=== PATIENT | female | born 1985 | race Caucasian/White ===

== ENCOUNTER 2016-12-25 14:01 | Observation (INO) | payer OTHER ==
[2016-12-25] MEDS ORDERED: ONDANSETRON 4 MG/2 ML VIAL ONE ×2 (14:21→15:17)
[2016-12-25] MEDS ORDERED: NS 1,000 ML IV ONE ×2 (14:36→15:12)
[2016-12-25 14:47] LABS: % IMMATURE GRANULYOCYTES 0.2 % (0.0-1.1); ABSOLUTE IMMATURE GRANULOCYTES 0.03 10^3/uL (0.00-0.10); ADD DIFF? NO; ADD MORPH? NO; ADD SCAN? NO; ATYPICAL LYMPHOCYTE FLAG 10 (0-99); FRAGMENT RBC FLAG 0 (0-99); HEMATOCRIT 36.9 % (38.0-47.0); HEMOGLOBIN 12.6 g/dL (12.6-16.3); LEFT SHIFT FLG 0 (0-99); LIPEMIA HEMOLYSIS FLAG 90 (0-99); MEAN CELL HEMOGLOBIN 32.3 pg (27.9-34.1); MEAN CELL HEMOGLOBIN CONCENTR. 34.1 g/dL (32.4-36.7); MEAN CELL VOLUME 94.6 fL (81.5-99.8); MEAN PLATELET VOLUME 10.2 fL (8.7-11.7); PLATELET CLUMPS FLAG 20 (0-99); PLATELET COUNT 302 10^3/uL (150-400); RED CELL DISTRIBUTION WIDTH 12.6 % (11.5-15.2)
[2016-12-25] MEDS ORDERED: PANTOPRAZOLE SODIUM 40 MG VIAL IVP ONE (14:50)
--- NOTE | 2016-12-25 14:50 | EDPHY ---
H & P Stated Complaint: dry mouth, abd pain Source: Patient, Family Exam Limitations: No limitations - Personal History LMP (Females 10-55): 1-7 Days Ago Current Tetanus Diphtheria and Acellular Pertussis (TDAP): Unsure - Medical/Surgical History Hx Asthma: No Hx Chronic Respiratory Disease: No Hx Diabetes: No Hx Cardiac Disease: No Hx Renal Disease: No Hx Cirrhosis: No Hx Alcoholism: No Hx HIV/AIDS: No Hx Splenectomy or Spleen Trauma: No - Social History Smoking Status: Never smoked HPI/ROS: CHIEF COMPLAINT: Epigastric pain, vomiting HISTORY OF PRESENT ILLNESS: Patient complains 1 day history of epigastric abdominal. This started this morning 9:00 a.m.. She had not recently eaten. It is a constant pain. It was mild at 1st and steadily worsened over the course of 4 hours. At worst it was a 9/10. Currently a 3/10. No radiating pain. Nausea and 1 episode of vomiting today. She has had several episodes of this over the past 4 months. None of them occur after eating. They do occur randomly. The described as a pressure-type pain. Nausea in the past but no vomiting until today. No trauma or injury. No urinary complaints. No changes in her bowel movements. Patient is visiting from [place]. They were hiking this morning when this originally started. No other associated complaints or modifying factors. Addendum to HPI I originally documented the patient had informed me she had no previous surgeries. This is incorrect. She does have 1 diagnostic laparoscopy performed several years ago due to uterine fibroids. PREVIOUS ABDOMINAL SURGERIES/DIAGNOSES: None REVIEW OF SYSTEMS: Ten systems reviewed and are negative unless otherwise noted in the HPI EXAMINATION: General Appearance: Alert, no distress Head: normocephalic, atraumatic Eyes: Pupils equal and round, no conjunctival pallor or injection ENT, Mouth: Mucous membranes moist Neck: Normal inspection, supple, non-tender Respiratory: Lungs are clear to auscultation. Uvula midline. Cardiovascular: Regular rate and rhythm. No murmur. Gastrointestinal: Abdomen is soft. Moderate tenderness in the epigastrium. No distention. No tympany. No rigidity. No CVA tenderness. Negative Webb sign. Non-acute abdomen. Neurological: A&O, nonfocal, normal gait Skin: Warm and dry, no rash. No petechiae or purpura Extremities: Nontender, no pedal edema Psychiatric: Mood and affect normal DIFFERENTIAL DIAGNOSES: Including but not limited to gastritis, pancreatitis, cholecystitis, cholelithiasis, enteritis, colitis, duodenitis, numbness MDM: 2:45 p.m. Epigastric abdominal pain with vomiting. Patient was moderately tender in the epigastrium, thus I have ordered a CT scan of the abdomen pelvis. Vital signs were well within normal limits. She is in no acute distress with a nonacute abdominal examination. Suspect this is gastritis with mild dehydration. 4:00 p.m. Notified by radiologist Dr. Jennings. CT scan of the abdomen pelvis reveals acute, early partial small bowel obstruction. There is a transition point distally. Question the possibility of Crohn's disease presents. No other finding. 4:15 p.m. I have discussed the case with hospitalist Dr. Ptael, she will admit the patient to her service. I will consult General surgery. I have re-evaluated patient and made her aware of these findings. She was visually upset by this but reasonably so. She is resting comfortably in no acute distress 4:20 p.m. I have discussed the case with general surgeon Dr. Reno. She will come evaluate the patient in the emergency department. No further recommendations. Patient has been admitted in stable condition for further care. No active vomiting and minimal pain, thus I did not order an NG tube. Dr. Reno is comfortable with this so far ED Precautions: Worsening pain. Fever. Bloody stools. Bloody emesis. Constipation or diarrhea. SUPERVISION: Patient was evaluated in conjunction with the supervising physician. Please see their note for details. (James Galindo) Constitutional: Initial Vital Signs Temperature (C) 36.9 C 12/25/16 14:16 Heart Rate 96 12/25/16 14:16 Respiratory Rate 16 12/25/16 14:16 Blood Pressure 123/81 H 12/25/16 14:16 O2 Sat (%) 99 12/25/16 14:16 O2 Delivery Mode Room Air Medical Decision Making - Diagnostics Imaging Results: Imaging Impressions Abdomen CT 12/25/16 14:45 Impression: 1. Mild small bowel distention with abrupt transition in the right pelvis, suggesting small bowel obstruction, with moderate mesenteric edema and a small amount of free fluid. 2. Areas of apparent wall thickening in the ileum, which could be related to underdistention, enteritis or small bowel inflammation (Crohn's could have this appearance). 3. Multiple circumscribed hypodensities in the liver, which could represent a cyst but are too small to characterize. 4. Additional findings as above. Findings discussed with James Galindo PA-C, 12/25/2016 at 1558 hours. ED Course/Re-evaluation: I did not see this patient while she was in the emergency department. However her care was discussed with the PA while the patient was in the department. I agree with treatment plan and management (Brant Briones) - Data Points Laboratory Results: Laboratory Results 12/25/16 14:30 12/25/16 14:30 12/25/16 12/25/16 12/25/16 15:05 14:30 14:30 WBC RBC Hgb Hct MCV MCH MCHC RDW Plt Count MPV Neut % (Auto) Lymph % (Auto) Reynolds % (Auto) Eos % (Auto) Baso % (Auto) Nucleat RBC Rel Count Absolute Neuts (auto) Absolute Lymphs (auto) Absolute Monos (auto) Absolute Eos (auto) Absolute Basos (auto) Absolute Nucleated RBC Immature Gran % Immature Gran # Sodium 138 mEq/L mEq/L (134-144) Potassium 3.9 mEq/L mEq/L (3.5-5.2) Chloride 100 mEq/L mEq/L (97-110) Carbon Dioxide 21 mEq/l L mEq/l (22-31) Anion Gap 17 mEq/L H mEq/L (8-16) BUN 5 mg/dL L mg/dL (7-23) Creatinine 0.6 mg/dL mg/dL (0.6-1.0) Estimated GFR > 60 Glucose 97 mg/dL mg/dL (70-100) Calcium 10.1 mg/dL mg/dL (8.5-10.4) Total Bilirubin 1.0 mg/dL mg/dL (0.1-1.4) Conjugated Bilirubin 0.4 mg/dL mg/dL (0.0-0.5) Unconjugated Bilirubin 0.6 mg/dL mg/dL (0.0-1.1) AST 35 IU/L IU/L (14-46) ALT 20 IU/L IU/L (9-52) Alkaline Phosphatase 41 IU/L IU/L (38-126) Total Protein 8.7 g/dL H g/dL (6.3-8.2) Albumin 5.3 g/dL H g/dL (3.5-5.0) Lipase 90.0 IU/L IU/L (23-300) Beta HCG, Qual NEGATIVE Specimen Hemolysis 115 Urine Color YELLOW Urine Appearance CLEAR Urine pH 8.0 H (5.0-7.5) Ur Specific [place] 1.014 (1.002-1.030) Urine Protein NEGATIVE (NEGATIVE) Urine Ketones 2+ H (NEGATIVE) Urine Blood NEGATIVE (NEGATIVE) Urine Nitrate NEGATIVE (NEGATIVE) Urine Bilirubin NEGATIVE (NEGATIVE) Urine Urobilinogen NEGATIVE EU EU (0.2-1.0) Ur Leukocyte Esterase NEGATIVE (NEGATIVE) Urine RBC 5-10 /hpf H /hpf (0-3) Urine WBC 1-3 /hpf /hpf (0-3) Ur Epithelial Cells TRACE /lpf /lpf (NONE-1+) Urine Mucus TRACE /lpf /lpf (NONE-1+) Urine Glucose NEGATIVE (NEGATIVE) 12/25/16 14:30 WBC 12.83 10^3/uL H 10^3/uL (3.80-9.50) RBC 3.90 10^6/uL L 10^6/uL (4.18-5.33) Hgb 12.6 g/dL g/dL (12.6-16.3) Hct 36.9 % L % (38.0-47.0) MCV 94.6 fL fL (81.5-99.8) MCH 32.3 pg pg (27.9-34.1) MCHC 34.1 g/dL g/dL (32.4-36.7) RDW 12.6 % % (11.5-15.2) Plt Count 302 10^3/uL 10^3/uL (150-400) MPV 10.2 fL fL (8.7-11.7) Neut % (Auto) 86.4 % H % (39.3-74.2) Lymph % (Auto) 8.6 % L % (15.0-45.0) Reynolds % (Auto) 3.5 % L % (4.5-13.0) Eos % (Auto) 0.9 % % (0.6-7.6) Baso % (Auto) 0.4 % % (0.3-1.7) Nucleat RBC Rel Count 0.0 % % (0.0-0.2) Absolute Neuts (auto) 11.08 10^3/uL H 10^3/uL (1.70-6.50) Absolute Lymphs (auto) 1.10 10^3/uL 10^3/uL (1.00-3.00) Absolute Monos (auto) 0.45 10^3/uL 10^3/uL (0.30-0.80) Absolute Eos (auto) 0.12 10^3/uL 10^3/uL (0.03-0.40) Absolute Basos (auto) 0.05 10^3/uL 10^3/uL (0.02-0.10) Absolute Nucleated RBC 0.00 10^3/uL 10^3/uL (0-0.01) Immature Gran % 0.2 % % (0.0-1.1) Immature Gran # 0.03 10^3/uL 10^3/uL (0.00-0.10) Sodium Potassium Chloride Carbon Dioxide Anion Gap BUN Creatinine Estimated GFR Glucose Calcium Total Bilirubin Conjugated Bilirubin Unconjugated Bilirubin AST ALT Alkaline Phosphatase Total Protein Albumin Lipase Beta HCG, Qual Specimen Hemolysis Urine Color Urine Appearance Urine pH Ur Specific Geismar Urine Protein Urine Ketones Urine Blood Urine Nitrate Urine Bilirubin Urine Urobilinogen Ur Leukocyte Esterase Urine RBC Urine WBC Ur Epithelial Cells Urine Mucus Urine Glucose Medications Given: Discontinued Medications Sodium Chloride (Ns) 1,000 mls @ 0 mls/hr IV ONCE ONE; Wide Open PRN Reason: Protocol Stop: 12/25/16 14:37 Last Admin: 12/25/16 14:41 Dose: 1,000 mls Sodium Chloride (Ns) 1,000 mls @ 0 mls/hr IV ONCE ONE; Wide Open PRN Reason: Protocol Stop: 12/25/16 15:13 Last Admin: 12/25/16 14:45 Dose: 1,000 mls Ondansetron HCl (Zofran) 4 mg IVP EDNOW ONE Stop: 12/25/16 15:19 Last Admin: 12/25/16 15:21 Dose: 2 mg Pantoprazole Sodium (Protonix) 40 mg IVP EDNOW ONE Stop: 12/25/16 14:51 Last Admin: 12/25/16 14:52 Dose: Not Given
[2016-12-25 15:01] LABS: ALANINE AMINOTRANSFERASE 20 IU/L (9-52); ALBUMIN 5.3 g/dL (3.5-5.0); ALKALINE PHOSPHATASE 41 IU/L (38-126); ANION GAP 17 mEq/L (8-16); ASPARTATE AMINOTRANSFERASE 35 IU/L (14-46); BILIRUBIN-CONJUGATED 0.4 mg/dL (0.0-0.5); BILIRUBIN-UNCONJUGATED 0.6 mg/dL (0.0-1.1); CALCIUM 10.1 mg/dL (8.5-10.4); CARBON DIOXIDE 21 mEq/l (22-31); CHLORIDE 100 mEq/L (97-110); CREATININE 0.6 mg/dL (0.6-1.0); GLOMERULAR FILTRATION RATE > 60; GLUCOSE 97 mg/dL (70-100); POTASSIUM 3.9 mEq/L (3.5-5.2); SODIUM 138 mEq/L (134-144); SPECIMEN HEMOLYSIS 115; TOTAL PROTEIN 8.7 g/dL (6.3-8.2)
[2016-12-25] MEDS ORDERED: IOPAMIDOL (ISOVUE-300) 100 ML BTL ONE (15:09)
[2016-12-25] MEDS ORDERED: ONDANSETRON 4 MG/2 ML VIAL IVP ONE (15:18)
[2016-12-25 15:24] LABS: COLOR YELLOW; LEUKOCYTE ESTERASE,URINE NEGATIVE (NEGATIVE); NITRITE,URINE NEGATIVE (NEGATIVE)
[2016-12-25 15:26] LABS: MUCUS TRACE /lpf (NONE-1+)
--- NOTE | 2016-12-25 17:54 | GCON ---
[f rep st] CONSULTATION REFERRING PHYSICIAN: Brant Briones MD CHIEF COMPLAINT: Small-bowel obstruction. REQUESTING PHYSICIANS: Brant Briones MD, and James Galindo PA-C. HISTORY OF PRESENT ILLNESS: The patient is a 31-year-old woman traveling from [place], who, in retrospect over the several months, has had episodes of pressure in her epigastrium. She had greasy food last night. Around 11 o' clock today, she developed severe sharp pain. It had worsened throughout the day. She had emesis in the ER, which did alleviate some of the pain. When she leans back, she also has a relief of the pain. She feels like she needs to have a bowel movement, but when she sat on the toilet, nothing happened. The pain does not radiate. When she leans forward, it is worse. PAST MEDICAL HISTORY: None. PAST SURGICAL HISTORY: Laparoscopy, and removal of a fibroid from her uterus. SOCIAL HISTORY: She lives in [place]. She denies tobacco use. She works as a nanny. REVIEW OF SYSTEMS: Ten-point review of systems negative, except per HPI. FAMILY HISTORY: No history of inflammatory bowel disease. PHYSICAL EXAM: VITAL SIGNS: 36.6, 78, 121/64, 18, 99% room air. GENERAL: Pleasant, well-nourished, well-groomed woman sitting up on a gurney. PSYCHIATRIC: Tearful throughout interview. HEENT: Normocephalic. No gross hearing deficits. Mucous membranes moist. Pupils equal and round. No scleral icterus. LUNGS: Clear to auscultation bilaterally. No increased work of breathing. CARDIAC: Regular rate. No peripheral edema. ABDOMEN: Bowel sounds are hypoactive. She is soft. She is not distended. She is not tender. EXTREMITIES: Moves all extremities well. MUSCULOSKELETAL: Normal nails. NEUROLOGIC: Grossly intact. PSYCHIATRIC: Mood and affect normal. LABORATORY DATA: I personally reviewed the results of her CT scan. I do see dilated small bowel with air-fluid levels. IMPRESSION AND PLAN: The patient is a 31-year-old woman who presents with a small-bowel obstruction. I reported that I would be very doubtful that she would be able to make it back to [place] on Tuesday. We discussed NG tube for decompression, and, at this time, she would like to decline. If she has increased distention, she will ask for that; certainly, if she has emesis. We discussed that this could be adhesive disease or this could be just related to enteritis. We discussed that if she does not improve, she may need adhesiolysis I will continue to follow. /[id number]/MODL MTDD
[2016-12-25] MEDS ORDERED: ACETAMINOPHEN 325 MG TAB PO PRN (18:00)
[2016-12-25] MEDS ORDERED: NS 1,000 ML IV SCH (18:00)
[2016-12-25] MEDS ORDERED: PROMETHAZINE HCL 25 MG/ML INJ IVP PRN (18:00)
[2016-12-25] MEDS ORDERED: LORazepam 2 MG/ML INJ IVP PRN (18:00)
[2016-12-25] MEDS ORDERED: ONDANSETRON 4 MG/2 ML VIAL IVP PRN (18:00)
[2016-12-25] MEDS ORDERED: oxyCODONE IR 5 MG TAB PO PRN (18:00)
[2016-12-25] MEDS ORDERED: HYDROmorphONE/DILAUDID 1 MG/ML SYR IVP PRN (18:00)
[2016-12-25] MEDS ORDERED: ONDANSETRON DISINTEGRATING 4 MG TAB PO PRN (18:00)
--- NOTE | 2016-12-25 19:40 | GHP ---
[f rep st] HISTORY AND PHYSICAL DATE OF ADMISSION: 12/25/2016 CHIEF COMPLAINT: Abdominal pain. HISTORY: This is a 31-year-old female with past medical history of uterine fibroids, status post ex ploratory laparotomy in March, and also concerns of intermittent brief abdominal pain, who prese nts with severe mid epigastric pain over the course of the day today. The patient lives in [place] and is here visiting. She notes today she developed midepigastric pain that initially felt similar to prior bouts she has had with abdominal discomfort. It, however, progressed, getting to be about a 9/10. It was associated with nausea and vomiting. She has not been passing gas and states she michaels s not had a bowel movement today. She has previously felt that her abdominal issues were digestive related, and has been followed by a brake repairer bus who has her avoiding [place]. She notes that she d oes not have any issues with chronic or recurrent diarrhea, but does have frequent episodes of more mild abdominal pain that is often associated with belching and gas and abdominal distention. At the time of my evaluation, patient's pain has essentially completely resolved, and she is now passing g as and feeling hungry. PAST MEDICAL HISTORY: None. PAST SURGICAL HISTORY: Exploratory laparotomy for uterine fibroids and removal of fibroid. SOCIAL HISTORY: Patient lives in [place]. 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 She is a non smoker. Very rare alcohol. No drug use. FAMILY HISTORY: Father with celiac disease. REVIEW OF SYSTEMS: 10-point review of systems obtained and negative, except as per HPI. HOME MEDICATIONS: None. ALLERGIES: No known drug allergies. PHYSICAL EXAM: VITAL SIGNS: BP 123/87, heart rate 84, respiratory rate 16, O2 sats 94% on room air . Temperature is 36.6. GENERAL APPEARANCE: This is a well-developed/well-nourished young female. She is awake and alert. She is in no acute distress. HEENT: Oropharynx clear. Eyes are anicteri c. CARDIOVASCULAR: RRR, no MRG. PULMONARY: CLEAR TO AUSCULTATION Bilaterally. Normal work of breathing. ABDOMEN: Soft, bowel sounds are present in all 4 quadrants . There is no rebound or guarding and no tenderness to palpation. EXTREMITIES: No clubbing, cyano sis, or edema. SKIN: Warm, dry, well perfused. NEURO/PSYCH: Oriented, appropriate, pleasant. CLINICAL DATA: Labs reviewed. Significant for a white blood cell count of 12.8, hematocrit of 36.9 , platelets of 302. Chemistry is notable for a bicarb of 21, with an anion gap of 17. Urinalysis is essentially unremarkable. Abdominal CT personally reviewed and interpreted shows evidence of a mild small bowel obstruction wi th moderate mesenteric edema and a small amount of free fluid. There are also areas of wall thicken ing in the ilium that could be related to under distention, enteritis, or small bowel inflammation, and multiple circumscribed hypodensities in the liver too small to characterize. ASSESSMENT/PLAN: This is a 31-year-old female with a past medical history of uterine fibroids prese nting with small bowel obstruction. 1. Small bowel obstruction. This appears to have already resolved with conservative management, in cluding IV fluids and bowel rest. She is now having bowel sounds and is no longer in pain, no longe r having any nausea or vomiting. Given her completely benign abdominal exam, I will trial her on cl ear liquids. If this fails, we will revert back to strict n.p.o. and bowel rest overnight. General Surgery has been consulted and are following. Etiology presumably secondary to adhesions from her prior surgery. However, given some abnormalities, including inflammation in the ilium, I did recomme nd that patient be followed up by Gastroenterology and be considered for colonoscopy to rule out majo ething more chronic like Crohn disease. She is amenable to that plan. 2. Anion gap metabolic acidosis. This is likely secondary to dehydration with associated vomiting. We will recheck in the morning to be sure this normalizes. 3. Leukocytosis. Suspect this is more of a stress response than a sign of infection, but GI stool pathogen has been sent. No other sources of infection have been identified. DISPOSITION: Observation status. I suspect she will need less than 48 hours stay for evaluation an d management of above. Patient is new to my care. Old records reviewed and summarized as per HPI and past medical history. Care plan reviewed with ER physician, including plans for surgical consult. /[id number]/MODL
[2016-12-26 05:23] LABS: % IMMATURE GRANULYOCYTES 0.2 % (0.0-1.1); ABSOLUTE IMMATURE GRANULOCYTES 0.02 10^3/uL (0.00-0.10); ADD DIFF? NO; ADD MORPH? NO; ADD SCAN? NO; ATYPICAL LYMPHOCYTE FLAG 20 (0-99); FRAGMENT RBC FLAG 0 (0-99); HEMATOCRIT 33.8 % (38.0-47.0); HEMOGLOBIN 11.2 g/dL (12.6-16.3); LEFT SHIFT FLG 0 (0-99); LIPEMIA HEMOLYSIS FLAG 80 (0-99); MEAN CELL HEMOGLOBIN 32.1 pg (27.9-34.1); MEAN CELL HEMOGLOBIN CONCENTR. 33.1 g/dL (32.4-36.7); MEAN CELL VOLUME 96.8 fL (81.5-99.8); MEAN PLATELET VOLUME 9.9 fL (8.7-11.7); PLATELET CLUMPS FLAG 0 (0-99); PLATELET COUNT 238 10^3/uL (150-400); RED BLOOD CELL COUNT 3.49 10^6/uL (4.18-5.33); RED CELL DISTRIBUTION WIDTH 12.7 % (11.5-15.2)
[2016-12-26 05:33] LABS: ANION GAP 10 mEq/L (8-16); CALCIUM 8.9 mg/dL (8.5-10.4); CARBON DIOXIDE 23 mEq/l (22-31); CHLORIDE 105 mEq/L (97-110); CREATININE 0.6 mg/dL (0.6-1.0); GLOMERULAR FILTRATION RATE > 60; GLUCOSE 72 mg/dL (70-100); MAGNESIUM 2.2 mg/dL (1.6-2.3); POTASSIUM 3.9 mEq/L (3.5-5.2); SODIUM 138 mEq/L (134-144)
[2016-12-26 08:40] VITALS: BP 119/74; PULSE 72; RESP 16; TEMP 98.2; O2SAT 95
[2016-12-26] MEDS ORDERED: ENOXAPARIN 40 MG/0.4 ML SYR SC SCH (09:00)
--- NOTE | 2016-12-26 16:07 | PDDCSUM ---
Discharge Summary Discharge Summary: DISCHARGE DIAGNOSES: -suspected small bowel obstruction -probably hepatic cysts -chronic digestive symptoms of uncertain etiology PROCEDURES: CT scan abdomen pelvis HOSPITAL COURSE SUMMARY: This patient with a history of laparoscopic uterine fibroid removal came in with typical symptoms and exam findings of a bowel obstruction of several hours duration. CT scan of the abdomen was consistant with likely low grade SBO, and there was a question of some thickening of the wall of the ileum which was not distended. There was no fever and no extraintestinal symptoms. The patient did give a history of longstanding episodes of similar but milder and briefer nature. She was treated with conservative measures and hydration. Her symptoms resolved and she started to have flatus and bowel movement. She tolerated a trial of diet well. At this time she is discharged and will follow up with her weather reporter in [place] on rturn there. Due to her longstanding symptoms and the question of ileal thickening on CT it is recommended she see a gastroenterolgist at some point to determine if she should be evaluated for either crohns or other illness. PENDING TEST RESULTS: none MEDICATION CHANGES: none
== END 2016-12-26 16:58 | disposition home or self-care (01) ==
LOC: INTOOBSV 16:20 → F1N 17:29
PROVIDERS: ADMIT Internal Medicine; ATTEND Internal Medicine
DX: R10.13 Epigastric pain (principal); R14.0 Abdominal distension (gaseous); Z87.42 Personal history of other diseases of the female genital tract
CPT/HCPCS: G0378; J1650; J2405; Q9967